=== PATIENT | female | born 1960 | race Caucasian/White ===

== ENCOUNTER 2023-08-02 19:55 | Emergency (ER) | payer SELFPAY ==
[~2023-08-02] VITALS: Ht 157.5 cm; Wt 82.0 kg
[2023-08-02 21:29] VITALS: O2SAT 98
[2023-08-02] MEDS ORDERED: IBUP-2029 MT (22:07)
[2023-08-02] MEDS: IBUPROFEN 600MG TABLET PO ONE (22:31)
[2023-08-02 22:36] VITALS: BP 156/76; PULSE 76; RESP 18; TEMP 98.1
== END 2023-08-02 22:38 | disposition home or self-care (01) ==
LOC: ER 19:55
DX: S42.201A Unspecified fracture of upper end of right humerus, initial encounter for closed fracture (principal); E11.9 Type 2 diabetes mellitus without complications; I10 Essential (primary) hypertension; E03.9 Hypothyroidism, unspecified; Z98.890 Other specified postprocedural states; W18.39XA Other fall on same level, initial encounter; Y93.89 Activity, other specified; Y92.89 Other specified places as the place of occurrence of the external cause; Y99.8 Other external cause status
CPT/HCPCS: 73030; 99283